=== PATIENT | female | born 1965 | race Caucasian/White ===

== ENCOUNTER 2020-09-27 16:17 | Inpatient (IN) | payer OTHER ==
[2020-09-27] MEDS ORDERED: Lactated Ringers 500 ML IV SCH (17:00)
[2020-09-27 19:04] LABS: INFLUENZA A NEGATIVE (NEGATIVE); INFLUENZA B NEGATIVE (NEGATIVE); RESPIRATORY SYNCTIAL VIRUS NEGATIVE (Negative)
[2020-09-27 20:20] LABS: ABO TYPING A; Antibody Screen NEGATIVE (NEGATIVE); RH TYPING POSITIVE
[2020-09-27 20:23] LABS: CROSS MATCH (PRBC) COMPATIBLE (COMPATIBLE)
[2020-09-27] MEDS: Sodium Chloride 0.9% 500 ML 500 ML IV SCH (20:36)
[2020-09-27] MEDS: TYLENOL 325 MG PO PRN (20:37)
[2020-09-27] MEDS ORDERED: DESYREL 50 MG PO PRN (21:21)
[2020-09-27] MEDS ORDERED: SYNTHROID 25 MCG PO ONE (22:00)
[2020-09-27] MEDS ORDERED: SYNTHROID 112 MCG PO ONE (22:00)
[2020-09-27] MEDS: COREG 12.5 MG PO SCH (22:17)
[2020-09-27] MEDS: CLARITIN 10 MG PO SCH (22:17)
[2020-09-28] MEDS: TYLENOL 325 MG PO PRN ×3 (01:59→18:38)
[2020-09-28 04:30] LABS: Appearance TURBID (CLEAR); Bacteria MANY /HPF (NEGATIVE); Bilirubin NEGATIVE (NEGATIVE); Blood LARGE Ery/ul (0-5); Epithelial Cells RARE /HPF (FEW); Glucose NEGATIVE (NEGATIVE); Ketones NEGATIVE (NEGATIVE); Leukocyte Esterase SMALL (NEGATIVE); Mucus SLIGHT /HPF (NEGATIVE); Nitrite NEGATIVE (NEGATIVE); Protein,Urine Dip >=500 (Negative); Specific Gravity 1.022 (1.005-1.025); Urobilinogen NEGATIVE mg/dL (0-1); WBC >100 /HPF (0-5)
[2020-09-28 04:31] LABS: RBC >101 /HPF (0-2)
[2020-09-28 05:31] LABS: Appearance SLIGHTLY CLOUDY (CLEAR); Bilirubin NEGATIVE (NEGATIVE); Blood MODERATE Ery/ul (0-5); Epithelial Cells RARE /HPF (FEW); Glucose NEGATIVE (NEGATIVE); Ketones NEGATIVE (NEGATIVE); Leukocyte Esterase TRACE (NEGATIVE); Nitrite NEGATIVE (NEGATIVE); Protein,Urine Dip NEGATIVE (Negative); Specific Gravity 1.017 (1.005-1.025); Urobilinogen NEGATIVE mg/dL (0-1)
[2020-09-28 05:50] LABS: Bacteria MODERATE /HPF (NEGATIVE)
[2020-09-28 06:58] LABS: Hematocrit 34.8 % (35-47); Hemoglobin 10.6 gm/dl (12.0-16.0); Mean Cell Volume 83.1 fl (78-100); Mean Corpuscular Hemoglobin 25.3 pg (26-32); Mean Corpuscular Hgb Concent. 30.5 g/dl (32-36); Mean Platelet Volume 9.2 fl (7.5-11.0); Platelet Count 351 K/mm3 (150-450); Red Blood Count 4.19 M/mm3 (4.1-5.4); Red Cell Distribution Width 18.3 % (11.5-14.0)
[2020-09-28 08:17] LABS: ALBUMIN 2.7 g/dL (3.5-5.0); ANION GAP 12.7 MEQ/L (5-15); BILIRUBIN,TOTAL 0.6 mg/dL (0.2-1.3); Calcium 9.4 mg/dL (8.4-10.2); Creatinine 1 1.93 mg/dL (0.52-1.04); EST GLOMERULAR FILTRATION RATE 28.8 ML/MIN; Potassium 5.6 mmol/L (3.5-5.1); Total Protein 5.7 g/dL (6.3-8.2)
--- NOTE | 2020-09-28 09:04 | PCM.HP ---
History of Present Illness - Chief Complaint Chief Complaint: anemia History of Present Illness: is a 55 year old female who was admitted with a critical hemoglobin of 5.6 she has had vaginal bleeding for the last couple of weeks and some difficulty with urination and hesitancy, states her appetite has been decreased but tolerating po ok, no specific complaints of pain. Her hygiene has been noted to be poor by nursing staff. - Review of Systems Constitutional: No Fever, No Chills Respiratory: No Cough, No Short Of Breath Cardiac: No Chest Pain, No Edema, No Syncope Genitourinary Symptoms: Hesitancy, Vaginal Bleeding, Vaginal Discharge Skin: No Rash All Other Systems: Reviewed and Negative Medications & Allergies Home Medications: Home Medication List Amlodipine Besylate 5 mg [Norvasc 5 mg] 2.5 mg PO DAILY 09/27/20 [History Confirmed 09/27/20] Atorvastatin Calcium [Lipitor 40Mg] 40 mg PO DAILY 09/27/20 [History Confirmed 09/27/20] Carvedilol 12.5 mg [Coreg 12.5 mg] 25 mg PO BID 09/27/20 [History Confirmed 09/27/20] Ferrous Sulfate [Ferosul] 325 mg PO BID PRN 09/27/20 [History Confirmed 09/27/20] Levothyroxine Sodium [Euthyrox] 137 mcg PO HS 09/27/20 [History Confirmed 09/27/20] Loratadine 10 mg [Claritin 10 mg] 10 mg PO HS 09/27/20 [History Confirmed 09/27/20] Trazodone HCl 100 mg PO HS PRN PRN 09/27/20 [History Confirmed 09/27/20] Allergies/Adverse Reactions: Allergies Allergy/AdvReac Type Severity Reaction Status Date / Time No Known Drug Allergies Allergy Unverified 09/27/20 18:48 - Past Medical History Past Medical History: Yes Neurological History: No Pertinent History ENT History: No Pertinent History Cardiac History: Hypertension Respiratory History: No Pertinent History Endocrine Medical History: Hypothyroidism Musculoskelatal History: No Pertinent History GI Medical History: No Pertinent History History: Renal Disease Pyscho-Social History: No Pertinent History Reproductive Disorders: No Pertinent History Comment: stage III CKD -- Sees Dr. Ortega - Female History Are you now?: No - Past Surgical History Past Surgical History: Yes Neuro Surgical History: No Pertinent History Cardiac History: No Pertinent History Respiratory Surgery: No Pertinent History GI Surgical History: Cholecystectomy Genitourinary Surgical Hx: No Pertinent History Musculskeletal Surgical Hx: No Pertinent History Female Surgical History: No Pertinent History - Social History Smoking Status: Never smoker Alcohol: None Drug Use: none - Physical Exam Vital Signs: Vital Signs - 24 hr Temp Pulse Resp BP Pulse Ox 09/28/20 07:25 97.4 F 60 18 127/58 97 09/28/20 04:00 97.9 F 67 24 139/63 96 09/28/20 00:00 98.2 F 66 20 124/59 97 09/27/20 19:34 98.3 F 91 H 18 164/67 98 09/27/20 18:50 98.3 F 91 H 18 164/67 98 General Appearance: no apparent distress, obese Neurologic Exam: alert, oriented x 3, cooperative Respiratory Exam: normal breath sounds, lungs clear, No respiratory distress Cardiovascular Exam: regular rate/rhythm Gastrointestinal/Abdomen Exam: soft, normal bowel sounds, No tenderness, No distention, No mass Extremity Exam: normal inspection, normal range of motion, pelvis stable Skin Exam: normal color, warm, dry, No rash Results - Labs Lab/Micro Results: Lab Results-Last 24 Hours 09/27/20 09/27/20 09/27/20 Range/Units 17:58 17:58 17:58 WBC (4.0-10.5) K/mm3 RBC (4.1-5.4) M/mm3 Hgb (12.0-16.0) gm/dl Hct (35-47) % MCV (78-100) fl MCH (26-32) pg MCHC (32-36) g/dl RDW (11.5-14.0) % Plt Count (150-450) K/mm3 MPV (7.5-11.0) fl Sodium (137-145) mmol/L Potassium (3.5-5.1) mmol/L Chloride (98-107) mmol/L Carbon Dioxide (22-30) mmol/L Anion Gap (5-15) MEQ/L BUN (7-17) mg/dL Creatinine (0.52-1.04) mg/dL Estimated GFR ML/MIN Glucose (74-106) mg/dL Calcium (8.4-10.2) mg/dL Total Bilirubin (0.2-1.3) mg/dL AST (14-36) U/L ALT (0-35) U/L Alkaline Phosphatase (38-126) U/L NT-Pro-B Natriuret Pep (0-900) pg/mL Serum Total Protein (6.3-8.2) g/dL Albumin (3.5-5.0) g/dL Urine Color (YELLOW) Urine Appearance (CLEAR) Urine pH (5-6) Ur Specific [place] (1.005-1.025) Urine Protein (Negative) Urine Ketones (NEGATIVE) Urine Blood (0-5) Kike/ul Urine Nitrite (NEGATIVE) Urine Bilirubin (NEGATIVE) Urine Urobilinogen (0-1) mg/dL Ur Leukocyte Esterase (NEGATIVE) Urine WBC (Auto) (0-5) /HPF Urine RBC (Auto) (0-2) /HPF U Epithel Cells (Auto) (FEW) /HPF Urine Bacteria (Auto) (NEGATIVE) /HPF Urine Mucus (Auto) (NEGATIVE) /HPF Urine Culture Reflexed (NO) Urine Glucose (NEGATIVE) mg/dL Stool Occult Blood (NEGATIVE) Influenza Type A Ag NEGATIVE (NEGATIVE) Influenza Type B Ag NEGATIVE (NEGATIVE) RSV (PCR) NEGATIVE (Negative) SARS-CoV-2 (PCR) NEGATIVE (NEGATIVE) ABO Group A Rh Factor POSITIVE Antibody Screen NEGATIVE (NEGATIVE) Crossmatch COMPATIBLE COMPATIBLE (COMPATIBLE) 09/27/20 09/28/20 09/28/20 Range/Units 17:58 01:30 04:00 WBC (4.0-10.5) K/mm3 RBC (4.1-5.4) M/mm3 Hgb (12.0-16.0) gm/dl Hct (35-47) % MCV (78-100) fl MCH (26-32) pg MCHC (32-36) g/dl RDW (11.5-14.0) % Plt Count (150-450) K/mm3 MPV (7.5-11.0) fl Sodium (137-145) mmol/L Potassium (3.5-5.1) mmol/L Chloride (98-107) mmol/L Carbon Dioxide (22-30) mmol/L Anion Gap (5-15) MEQ/L BUN (7-17) mg/dL Creatinine (0.52-1.04) mg/dL Estimated GFR ML/MIN Glucose (74-106) mg/dL Calcium (8.4-10.2) mg/dL Total Bilirubin (0.2-1.3) mg/dL AST (14-36) U/L ALT (0-35) U/L Alkaline Phosphatase (38-126) U/L NT-Pro-B Natriuret Pep (0-900) pg/mL Serum Total Protein (6.3-8.2) g/dL Albumin (3.5-5.0) g/dL Urine Color RED (YELLOW) Urine Appearance TURBID (CLEAR) Urine pH 6.0 (5-6) Ur Specific [place] 1.022 (1.005-1.025) Urine Protein >=500 (Negative) Urine Ketones NEGATIVE (NEGATIVE) Urine Blood LARGE (0-5) Kike/ul Urine Nitrite NEGATIVE (NEGATIVE) Urine Bilirubin NEGATIVE (NEGATIVE) Urine Urobilinogen NEGATIVE (0-1) mg/dL Ur Leukocyte Esterase SMALL (NEGATIVE) Urine WBC (Auto) >100 (0-5) /HPF Urine RBC (Auto) >101 (0-2) /HPF U Epithel Cells (Auto) RARE (FEW) /HPF Urine Bacteria (Auto) MANY (NEGATIVE) /HPF Urine Mucus (Auto) SLIGHT (NEGATIVE) /HPF Urine Culture Reflexed YES (NO) Urine Glucose NEGATIVE (NEGATIVE) mg/dL Stool Occult Blood POSITIVE A (NEGATIVE) Influenza Type A Ag (NEGATIVE) Influenza Type B Ag (NEGATIVE) RSV (PCR) (Negative) SARS-CoV-2 (PCR) (NEGATIVE) ABO Group Rh Factor Antibody Screen (NEGATIVE) Crossmatch COMPATIBLE (COMPATIBLE) 09/28/20 09/28/20 09/28/20 Range/Units 05:10 06:32 06:32 WBC 13.0 H (4.0-10.5) K/mm3 RBC 4.19 (4.1-5.4) M/mm3 Hgb 10.6 L D (12.0-16.0) gm/dl Hct 34.8 L (35-47) % MCV 83.1 (78-100) fl MCH 25.3 L (26-32) pg MCHC 30.5 L (32-36) g/dl RDW 18.3 H (11.5-14.0) % Plt Count 351 (150-450) K/mm3 MPV 9.2 (7.5-11.0) fl Sodium 132 L (137-145) mmol/L Potassium 5.6 H (3.5-5.1) mmol/L Chloride 108 H (98-107) mmol/L Carbon Dioxide 17 L (22-30) mmol/L Anion Gap 12.7 (5-15) MEQ/L BUN 40 H (7-17) mg/dL Creatinine 1.93 H (0.52-1.04) mg/dL Estimated GFR 28.8 ML/MIN Glucose 102 (74-106) mg/dL Calcium 9.4 (8.4-10.2) mg/dL Total Bilirubin 0.60 (0.2-1.3) mg/dL AST 34 (14-36) U/L ALT 32 (0-35) U/L Alkaline Phosphatase 140 H (38-126) U/L NT-Pro-B Natriuret Pep (0-900) pg/mL Serum Total Protein 5.7 L (6.3-8.2) g/dL Albumin 2.7 L (3.5-5.0) g/dL Urine Color YELLOW (YELLOW) Urine Appearance SLIGHTLY CLOUDY (CLEAR) Urine pH 5.0 (5-6) Ur Specific [place] 1.017 (1.005-1.025) Urine Protein NEGATIVE (Negative) Urine Ketones NEGATIVE (NEGATIVE) Urine Blood MODERATE (0-5) Kike/ul Urine Nitrite NEGATIVE (NEGATIVE) Urine Bilirubin NEGATIVE (NEGATIVE) Urine Urobilinogen NEGATIVE (0-1) mg/dL Ur Leukocyte Esterase TRACE (NEGATIVE) Urine WBC (Auto) 3-5 (0-5) /HPF Urine RBC (Auto) 6-10 (0-2) /HPF U Epithel Cells (Auto) RARE (FEW) /HPF Urine Bacteria (Auto) MODERATE (NEGATIVE) /HPF Urine Mucus (Auto) (NEGATIVE) /HPF Urine Culture Reflexed ORDERED SEPARATELY (NO) Urine Glucose NEGATIVE (NEGATIVE) mg/dL Stool Occult Blood (NEGATIVE) Influenza Type A Ag (NEGATIVE) Influenza Type B Ag (NEGATIVE) RSV (PCR) (Negative) SARS-CoV-2 (PCR) (NEGATIVE) ABO Group Rh Factor Antibody Screen (NEGATIVE) Crossmatch (COMPATIBLE) 09/28/20 Range/Units 06:32 WBC (4.0-10.5) K/mm3 RBC (4.1-5.4) M/mm3 Hgb (12.0-16.0) gm/dl Hct (35-47) % MCV (78-100) fl MCH (26-32) pg MCHC (32-36) g/dl RDW (11.5-14.0) % Plt Count (150-450) K/mm3 MPV (7.5-11.0) fl Sodium (137-145) mmol/L Potassium (3.5-5.1) mmol/L Chloride (98-107) mmol/L Carbon Dioxide (22-30) mmol/L Anion Gap (5-15) MEQ/L BUN (7-17) mg/dL Creatinine (0.52-1.04) mg/dL Estimated GFR ML/MIN Glucose (74-106) mg/dL Calcium (8.4-10.2) mg/dL Total Bilirubin (0.2-1.3) mg/dL AST (14-36) U/L ALT (0-35) U/L Alkaline Phosphatase (38-126) U/L NT-Pro-B Natriuret Pep 1100 H (0-900) pg/mL Serum Total Protein (6.3-8.2) g/dL Albumin (3.5-5.0) g/dL Urine Color (YELLOW) Urine Appearance (CLEAR) Urine pH (5-6) Ur Specific [place] (1.005-1.025) Urine Protein (Negative) Urine Ketones (NEGATIVE) Urine Blood (0-5) Kike/ul Urine Nitrite (NEGATIVE) Urine Bilirubin (NEGATIVE) Urine Urobilinogen (0-1) mg/dL Ur Leukocyte Esterase (NEGATIVE) Urine WBC (Auto) (0-5) /HPF Urine RBC (Auto) (0-2) /HPF U Epithel Cells (Auto) (FEW) /HPF Urine Bacteria (Auto) (NEGATIVE) /HPF Urine Mucus (Auto) (NEGATIVE) /HPF Urine Culture Reflexed (NO) Urine Glucose (NEGATIVE) mg/dL Stool Occult Blood (NEGATIVE) Influenza Type A Ag (NEGATIVE) Influenza Type B Ag (NEGATIVE) RSV (PCR) (Negative) SARS-CoV-2 (PCR) (NEGATIVE) ABO Group Rh Factor Antibody Screen (NEGATIVE) Crossmatch (COMPATIBLE) - Radiology Impressions Radiology Exams & Impressions: Radiology Procedures Category Date Time Status KIDNEY [US] Routine Exams 09/28/20 Ordered PELVIS LIMITED [US] Routine Exams 09/28/20 Ordered Assessment/Plan (1) Anemia Current Visit: Yes Status: Acute Assessment & Plan: likely from multiple bleeding sources, plan kidney and pelvic ultrasound today. will eventually likely required endoscopic evaluation, currently on no anticoagulants. will start ppi Code(s): D64.9 - ANEMIA, UNSPECIFIED (2) Vaginal bleeding Current Visit: Yes Status: Acute Code(s): N93.9 - ABNORMAL UTERINE AND VAGINAL BLEEDING, UNSPECIFIED (3) Heme positive stool Current Visit: Yes Status: Acute (4) Hematuria Current Visit: Yes Status: Acute Code(s): R31.9 - HEMATURIA, UNSPECIFIED
[2020-09-28] MEDS: ZOCOR 20MG PO SCH (11:41)
[2020-09-28] MEDS: NORVASC 5 MG PO SCH (11:41)
[2020-09-28] MEDS: SYNTHROID 25 MCG PO SCH (11:42)
[2020-09-28] MEDS: SYNTHROID 112 MCG PO SCH (11:42)
[2020-09-28] MEDS: PROTONIX 40 MG IV IV SCH (11:42)
[2020-09-28] MEDS: COREG 12.5 MG PO SCH ×2 (11:42→22:58)
[2020-09-28 12:14] LABS: ATYPICAL LYMPHS 1 %; BAND 4 % (0.0-2.0); Eosinophil 5 % (0.00-3.0); Lymphocytes 86 % (24-44); Monocyte 4 % (0.0-12.0); Total Cells Counted 100
[2020-09-28 12:15] LABS: ANISOCYTOSIS 1+; Platelet Estimate NORMAL (NORMAL); Toxic Granulation 1+
--- NOTE | 2020-09-28 13:41 | XRAY ---
Exam: Pelvic ultrasound exam from 09/28/2020. Comparison: CT of the abdomen and pelvis without IV contrast from 08/07/2020. Indication: Vaginal bleeding and pain; pelvic mass identified on prior CT study. Technique: Transabdominal longitudinal and transverse images of the pelvis were obtained. Findings: The urinary bladder reveals only a small amount of urine within it and appears displaced anteriorly by a large heterogeneous lower pelvic midline soft tissue mass. This mass contains some eccentric increased echoes within it. I believe the mass measures about 14.1 cm in length (manually remeasured), 9.6 cm in AP depth, and 10.3 cm in width. Some surrounding bowel gas artifact is seen. It is difficult to determine the origin of this mass, but I favor that it is either uterine or cervical. I do not see any definite free fluid within the lower pelvis. Neither ovary was able to be identified on the ultrasound. However, no large pelvic adnexal mass was seen on the prior CT study from 08/07/2020. Impression: 1. I again see a large round/oval-shaped heterogeneous soft tissue mass within lower pelvic midline which appears to be displacing a small volume urinary bladder anteriorly. This mass measures about 14.1 cm x 9.6 cm x 10.3 cm. This probably relates to either the uterus or the cervix. Gynecology consult may be helpful.
--- NOTE | 2020-09-28 13:59 | XRAY ---
Exam: Bilateral renal ultrasound from 09/28/2020. Comparison: CT of the abdomen and pelvis without IV contrast from 08/07/2020 and bilateral renal ultrasound from 02/14/2020. Indication: Difficulty urinating, hematuria. Findings: The right kidney measures 10.0 cm x 4.5 cm x 5.4 cm. There is some separation of the central echogenic complex medially on the longitudinal images. This is similar to the CT study from 08/07/2020. I'm not sure whether this due to a moderate sized extrarenal pelvis or mild hydronephrosis of the right kidney. In any event, I do not believe this is significantly changed from 08/07/2020.. The left kidney measures 11.3 cm x 5.7 cm x 4.8 cm. There again appears to be some separation of the central echogenic complex at the medial aspect of the left kidney. However, this was not seen on the CT study from 08/07/2020. Therefore, I believe this is likely due to mild to moderate hydronephrosis. The urinary bladder is relatively small with a urinary bladder volume of 60.6 ML's. The urinary bladder appears displaced anteriorly by the large lower pelvic midline soft tissue mass. Evidently, a urinary Blas catheter is in place. No other significant finding is seen. Impression: 1. There is either a moderate sized extrarenal pelvis at the medial aspect of the right kidney or mild hydronephrosis on the right. I believe this is similar to the CT study from 08/07/2020. 2. Within the left kidney, I note new mild separation of the central echogenic complex as compared to the CT study from 08/07/2020. This suggests mild to moderate left-sided hydronephrosis. 3. Both kidneys appear within normal limits of size. 4. Evidently, the patient has a Blas catheter within the urinary bladder. The urinary bladder volume is relatively low. The urinary bladder appears displaced anteriorly by the large midline pelvic soft tissue mass.
[2020-09-28] MEDS ORDERED: Ambien 5 MG Tablet PO PRN (20:10)
[2020-09-28] MEDS ORDERED: LEVOTHYROXINE SODIUM 137 MCG PO SCH (22:00)
[2020-09-28] MEDS: CLARITIN 10 MG PO SCH (22:54)
[2020-09-29] MEDS: TYLENOL 325 MG PO PRN (02:30)
[2020-09-29] MEDS ORDERED: FLAGYL 500 MG IVPB 500 MG/100 ML BAG IV ONE (04:21)
[2020-09-29] MEDS ORDERED: Sodium Chloride 0.9% 1000 ML 1,000 ML ONE (04:22)
[2020-09-29 04:51] LABS: Absolute Neutrophil Ct (ANC) 10.56 (1.4-6.9); BASOPHIL % 0.2 % (0.0-0.4); Basophil (Absolute #) 0.02 (0-0.4); Eosinophil (Absolute #) 0.26 (0-0.5); Hematocrit 31.3 % (35-47); Hemoglobin 9.4 gm/dl (12.0-16.0); Lymphocyte (Absolute #) 1.01 (1.0-4.6); Lymphocytes % 7.6 % (24.0-44.0); Mean Cell Volume 83.5 fl (78-100); Mean Corpuscular Hemoglobin 25.1 pg (26-32); Mean Platelet Volume 9.4 fl (7.5-11.0); Monocyte (Absolute #) 1.43 (0.0-1.3); Monocytes % 10.8 % (0.0-12.0); Neutrophil % 79.4 % (36.0-66.0); Platelet Count 316 K/mm3 (150-450); Red Blood Count 3.75 M/mm3 (4.1-5.4); Red Cell Distribution Width 18.5 % (11.5-14.0); White Blood Count 13.3 K/mm3 (4.0-10.5)
[2020-09-29 05:23] LABS: ALBUMIN 2.4 g/dL (3.5-5.0); ANION GAP 12.7 MEQ/L (5-15); BILIRUBIN,TOTAL 0.3 mg/dL (0.2-1.3); Creatinine 1 2.03 mg/dL (0.52-1.04); EST GLOMERULAR FILTRATION RATE 27.1 ML/MIN; Potassium 5.3 mmol/L (3.5-5.1); Total Protein 5.2 g/dL (6.3-8.2)
--- NOTE | 2020-09-29 08:40 | PCM.NOTE ---
Date and Time: 09/29/20833 Subjective Assessment: Pt felt much better yesterday morning, then her tiredness returned later in the day. On u/s, pt has a large (approx [id number] cm) pelvic mass, likely uterine or cervical. I discussed this with the pt, including the fact that cancer is in the differential but cannot say for sure until biopsy is done. Surgery is being consulted, thank you. Pt is tolerating po but says her appetite is decreased with some early satiety (this morning, has eaten 75% of her biscuits and gravy). Continues to have vaginal bleeding intermittently. - Review of Systems Constitutional: No Fever Genitourinary Symptoms: Vaginal Bleeding Objective Exam General Appearance: no apparent distress, alert, obese Neurologic Exam: oriented x 3, cooperative Skin Exam: normal color, warm, dry, No rash Ears, Nose, Throat Exam: moist mucous membranes Respiratory Exam: diminished breath sounds, No crackles/rales, No rhonchi, No wheezing Cardiovascular Exam: regular rate/rhythm, normal heart sounds, No murmur Gastrointestinal/Abdomen Exam: soft, No normal bowel sounds (hypoactive but present), No tenderness, No guarding, No rebound Extremity Exam: No pedal edema, No swelling Back Exam: normal inspection, No rash OBJECTIVE DATA Vital Signs: Vital Signs - 24 hr Temp Pulse Resp BP Pulse Ox 09/29/20 07:38 98.5 F 68 14 130/58 95 09/29/20 04:10 98.3 F 68 18 120/57 96 09/28/20 23:53 97.9 F 66 20 127/60 97 09/28/20 20:07 97.5 F 63 17 152/65 97 09/28/20 16:00 98.1 F 62 18 156/65 95 09/28/20 12:00 98.1 F 67 18 163/69 94 L Pain Assessment - Last Documented Pain Intensity 2 Pain Scale Used [facility] Intake and Output: Intake & Output 09/26/20 09/27/20 09/28/20 09/29/20 11:59 11:59 11:59 11:59 Intake Total 1584 800 Output Total 10 700 Balance 1574 100 Weight 105.6 kg Lab Results: Lab Results-Last 24 Hours 09/28/20 09/29/20 09/29/20 Range/Units 06:32 04:30 04:30 WBC 13.3 H (4.0-10.5) K/mm3 RBC 3.75 L (4.1-5.4) M/mm3 Hgb 9.4 L (12.0-16.0) gm/dl Hct 31.3 L (35-47) % MCV 83.5 (78-100) fl MCH 25.1 L (26-32) pg MCHC 30.0 L (32-36) g/dl RDW 18.5 H (11.5-14.0) % Plt Count 316 (150-450) K/mm3 MPV 9.4 (7.5-11.0) fl Gran % 79.4 H (36.0-66.0) % Eos # (Auto) 0.26 (0-0.5) Absolute Lymphs (auto) 1.01 (1.0-4.6) Absolute Monos (auto) 1.43 H (0.0-1.3) Lymphocytes % 7.6 L (24.0-44.0) % Monocytes % 10.8 (0.0-12.0) % Eosinophils % 2.0 (0.00-5.0) % Basophils % 0.2 (0.0-0.4) % Absolute Granulocytes 10.56 H (1.4-6.9) Band Neutrophils 4 H (0.0-2.0) % Lymphocytes (Manual) 86 H (24-44) % Monocytes (Manual) 4 (0.0-12.0) % Eosinophils (Manual) 5 H (0.00-3.0) % Basophils # 0.02 (0-0.4) Atypical Lymphocytes 1 % Toxic Granulation 1+ Platelet Estimate NORMAL (NORMAL) RBC Morphology ABNORMAL Anisocytosis 1+ Sodium 129 L (137-145) mmol/L Potassium 5.3 H (3.5-5.1) mmol/L Chloride 107 (98-107) mmol/L Carbon Dioxide 14 L* (22-30) mmol/L Anion Gap 12.7 (5-15) MEQ/L BUN 47 H (7-17) mg/dL Creatinine 2.03 H (0.52-1.04) mg/dL Estimated GFR 27.1 ML/MIN Glucose 114 H (74-106) mg/dL Calcium 9.0 (8.4-10.2) mg/dL Total Bilirubin 0.30 (0.2-1.3) mg/dL AST 26 (14-36) U/L ALT 27 (0-35) U/L Alkaline Phosphatase 119 (38-126) U/L Serum Total Protein 5.2 L (6.3-8.2) g/dL Albumin 2.4 L (3.5-5.0) g/dL Radiology Exams: Radiology Procedures Category Date Time Status KIDNEY [US] Routine Exams 09/28/20 12:43 Completed PELVIC [US] Routine Exams 09/28/20 12:43 Completed Assessment/Plan (1) Pelvic mass Current Visit: Yes Status: Acute Assessment & Plan: Concern for malignancy, certainly. Surgery consulted; pt is now NPO. Code(s): R19.00 - INTRA-ABD AND PELVIC SWELLING, MASS AND LUMP, UNSP SITE (2) hemoccult positive Current Visit: Yes Status: Acute (3) Poor intravenous access Current Visit: Yes Status: Acute Assessment & Plan: With doubtless upcoming surgery and possible treatment, along with possible need for further blood transfusion, pt would benefit from port placement. I did not discuss this with the pt. Code(s): Z78.9 - OTHER SPECIFIED HEALTH STATUS (4) Anemia Current Visit: Yes Status: Acute Qualifiers: Anemia type: iron deficiency Iron deficiency anemia type: other iron deficiency Qualified Code(s): D50.8 - Other iron deficiency anemias Code(s): D64.9 - ANEMIA, UNSPECIFIED (5) Vaginal bleeding Current Visit: Yes Status: Acute Code(s): N93.9 - ABNORMAL UTERINE AND VAGINAL BLEEDING, UNSPECIFIED (6) DVT prophylaxis Current Visit: Yes Status: Acute Assessment & Plan: With pt's bleeding and transfusion, and likely upcoming surgery, no blood thinners at this time. SCDs. Code(s): Z29.9 - ENCOUNTER FOR PROPHYLACTIC MEASURES, UNSPECIFIED (7) Fluid/electrolyte/nutrition Current Visit: Yes Status: Acute Assessment & Plan: With continued low CO2 on BMP, will restart NS at 75mL/hr.
[2020-09-29] MEDS: Sodium Chloride 0.9% 1000 ML 1,000 ML IV SCH ×2 (09:24→21:22)
[2020-09-29] MEDS: ZOCOR 20MG PO SCH (09:25)
[2020-09-29] MEDS: PROTONIX 40 MG IV IV SCH (09:25)
[2020-09-29] MEDS: COREG 12.5 MG PO SCH ×2 (09:25→21:21)
[2020-09-29] MEDS: SYNTHROID 25 MCG PO SCH (09:26)
[2020-09-29] MEDS: NORVASC 5 MG PO SCH (09:26)
[2020-09-29] MEDS: SYNTHROID 112 MCG PO SCH (09:26)
[2020-09-29] MEDS ORDERED: XYLOCAINE 1% HCL 20 ML MDV ONE (17:41)
[2020-09-29] MEDS ORDERED: Versed 2 MG/2 ML Injection ONE (18:11)
[2020-09-29] MEDS ORDERED: SUBLIMAZE 100 MCG/2 ML ONE (18:11)
[2020-09-29] MEDS ORDERED: DIPRIVAN 200 MG/20 ML IV ONE ×2 (18:11→18:53)
[2020-09-29] MEDS ORDERED: PHENYLEPHRINE HCL ONE (18:38)
[2020-09-29] MEDS ORDERED: KEFZOL 1 GM ONE (18:41)
[2020-09-29] MEDS ORDERED: CITROMA 296 ML PO ONE (20:33)
[2020-09-29] MEDS ORDERED: Miralax Powder 17GM PACKET PO ONE (20:36)
[2020-09-29] MEDS ORDERED: DULCOLAX 5 MG PO ONE (20:36)
[2020-09-29] MEDS ORDERED: NORCO 5/325 MG PO PRN (20:42)
[2020-09-29] MEDS: CLARITIN 10 MG PO SCH (21:22)
--- NOTE | 2020-09-30 07:06 | XRAY ---
Indication: Port placement. Poor venous access. Intraoperative fluoroscopy provided for 3 seconds. 2 digital spot images submitted for interpretation demonstrates partially visualized left Port-A-Cath with tip projecting over the SVC. Correlate with intraoperative findings/report.
[2020-09-30] MEDS ORDERED: Sodium Chloride 0.9% 10 ML FLUSH Syringe IV PRN (08:00)
[2020-09-30 08:48] LABS: Hemoglobin 9.1 gm/dl (12.0-16.0); Mean Cell Volume 84.7 fl (78-100); Mean Corpuscular Hemoglobin 24.9 pg (26-32); Mean Corpuscular Hgb Concent. 29.4 g/dl (32-36); Mean Platelet Volume 9.1 fl (7.5-11.0); Platelet Count 274 K/mm3 (150-450); Red Blood Count 3.66 M/mm3 (4.1-5.4); Red Cell Distribution Width 19.1 % (11.5-14.0); White Blood Count 13.9 K/mm3 (4.0-10.5)
[2020-09-30] MEDS: Sodium Chloride 0.9% 1000 ML 1,000 ML IV SCH (08:50)
[2020-09-30] MEDS: Sodium Chloride 0.9% 500 ML 500 ML IV SCH (08:52)
[2020-09-30 09:08] LABS: ALBUMIN 2.5 g/dL (3.5-5.0); ANION GAP 13.1 MEQ/L (5-15); BILIRUBIN,TOTAL 0.2 mg/dL (0.2-1.3); Calcium 8.8 mg/dL (8.4-10.2); Creatinine 1 1.94 mg/dL (0.52-1.04); EST GLOMERULAR FILTRATION RATE 28.6 ML/MIN; Potassium 4.8 mmol/L (3.5-5.1); Total Protein 5.4 g/dL (6.3-8.2)
[2020-09-30] MEDS: SYNTHROID 112 MCG PO SCH (09:43)
[2020-09-30] MEDS: SYNTHROID 25 MCG PO SCH (09:43)
[2020-09-30] MEDS: ZOCOR 20MG PO SCH (09:43)
[2020-09-30] MEDS: NORVASC 5 MG PO SCH (09:43)
[2020-09-30] MEDS: COREG 12.5 MG PO SCH (09:43)
[2020-09-30] MEDS: PROTONIX 40 MG IV IV SCH (09:44)
--- NOTE | 2020-09-30 09:59 | PCM.NOTE ---
Date and Time: 09/30/20 0956 Subjective Assessment: no new complaints today, patient is tired and didn't get much sleep. plan for egd/colonoscopy today with surgery Objective Exam General Appearance: no apparent distress, obese Neurologic Exam: alert, oriented x 3 Respiratory Exam: normal breath sounds, lungs clear, No respiratory distress Cardiovascular Exam: regular rate/rhythm, normal heart sounds Gastrointestinal/Abdomen Exam: soft, No tenderness, No mass OBJECTIVE DATA Vital Signs: Vital Signs - 24 hr Temp Pulse Resp BP Pulse Ox 09/30/20 07:05 98.0 F 70 20 125/58 97 09/30/20 04:00 68 17 105/52 99 09/29/20 22:15 97.6 F 72 19 126/60 94 L 09/29/20 21:15 98.0 F 72 20 148/65 96 09/29/20 20:45 98.8 F 72 16 137/61 96 09/29/20 20:15 98.5 F 70 20 136/61 94 L 09/29/20 20:00 98.2 F 70 22 146/66 95 09/29/20 16:09 97.5 F 68 18 119/58 95 09/29/20 16:00 99.4 F 67 18 136/61 96 09/29/20 11:42 97.5 F 68 18 119/58 95 Pain Assessment - Last Documented Pain Intensity 0 Pain Scale Used [facility] Intake and Output: Intake & Output 09/27/20 09/28/20 09/29/20 09/30/20 11:59 11:59 11:59 11:59 Intake Total 1584 1040 3542 Output Total 10 700 250 Balance 5448 277 2884 Weight 105.6 kg 105.6 kg Lab Results: Lab Results-Last 24 Hours 09/30/20 09/30/20 Range/Units 08:15 08:15 WBC 13.9 H (4.0-10.5) K/mm3 RBC 3.66 L (4.1-5.4) M/mm3 Hgb 9.1 L (12.0-16.0) gm/dl Hct 31.0 L (35-47) % MCV 84.7 (78-100) fl MCH 24.9 L (26-32) pg MCHC 29.4 L (32-36) g/dl RDW 19.1 H (11.5-14.0) % Plt Count 274 (150-450) K/mm3 MPV 9.1 (7.5-11.0) fl Sodium 129 L (137-145) mmol/L Potassium 4.8 (3.5-5.1) mmol/L Chloride 106 (98-107) mmol/L Carbon Dioxide 14 L* (22-30) mmol/L Anion Gap 13.1 (5-15) MEQ/L BUN 47 H (7-17) mg/dL Creatinine 1.94 H (0.52-1.04) mg/dL Estimated GFR 28.6 ML/MIN Glucose 86 (74-106) mg/dL Calcium 8.8 (8.4-10.2) mg/dL Total Bilirubin 0.20 (0.2-1.3) mg/dL AST 49 H (14-36) U/L ALT 31 (0-35) U/L Alkaline Phosphatase 141 H (38-126) U/L Serum Total Protein 5.4 L (6.3-8.2) g/dL Albumin 2.5 L (3.5-5.0) g/dL Radiology Exams: Radiology Procedures Category Date Time Status FLUOROSCOPY FOR VENOUS ACCESS Routine Exams 09/29/20 19:05 Completed KIDNEY [US] Routine Exams 09/28/20 12:43 Completed PELVIC [US] Routine Exams 09/28/20 12:43 Completed Assessment/Plan (1) Pelvic mass Current Visit: Yes Status: Acute Assessment & Plan: origin of mass is uncertain on ct from 08/07 and ultrasound, surgery to perform egd/colonoscopy today then will formulate surgical plan. appreciate their input and help Code(s): R19.00 - INTRA-ABD AND PELVIC SWELLING, MASS AND LUMP, UNSP SITE (2) Heme positive stool Current Visit: Yes Status: Acute (3) Anemia Current Visit: Yes Status: Acute Qualifiers: Anemia type: iron deficiency Iron deficiency anemia type: other iron de ficiency Qualified Code(s): D50.8 - Other iron deficiency anemias Assessment & Plan: h/h stable Code(s): D64.9 - ANEMIA, UNSPECIFIED (4) Vaginal bleeding Current Visit: Yes Status: Acute Code(s): N93.9 - ABNORMAL UTERINE AND VAGINAL BLEEDING, UNSPECIFIED (5) [id number] kidney injury Current Visit: Yes Status: Acute Assessment & Plan: slight improvement, left kidney with some hydro changes, likely obstruction from mass Code(s): N17.9 - ACUTE KIDNEY FAILURE, UNSPECIFIED; N18.9 - CHRONIC KIDNEY DISEASE, UNSPECIFIED
[2020-09-30] MEDS ORDERED: Lactated Ringers 1,000 ML IV SCH (10:30)
[2020-09-30] MEDS ORDERED: Sodium Chloride 0.9% 1000 ML 1,000 ML ONE (10:31)
[2020-09-30] MEDS ORDERED: DIPRIVAN 200 MG/20 ML IV ONE (10:32)
--- NOTE | 2020-09-30 11:38 | PCM.DS ---
Discharge Summary Date of Admission: 09/28/20 16:19 Admitting Physician: SAMANTHA ZHANG Consults: Consults on Case 09/29/20 08:00 Consult Surgery ROUTINE Primary Care Provider: SAMANTHA ZHANG Allergies Allergies No Known Drug Allergies Allergy (Unverified 09/27/20 18:48) Hospital Summary - Hospital Course Hospital Course: patient was admitted with hemoglobin of 5.6, found to have hematuria, heme + stool and vaginal bleeding, ultrasound showed large pelvic mass of unknown etiology. had a port - Vitals & Intake/Output Vital Signs: Vital Signs Temperature 98.2 F 09/30/20 09:58 Pulse Rate 78 09/30/20 09:58 Respiratory Rate 20 09/30/20 09:58 Blood Pressure 125/58 09/30/20 09:58 O2 Sat by Pulse Oximetry 97 09/30/20 09:58 Intake & Output: Intake & Output 09/27/20 09/28/20 09/29/20 09/30/20 11:59 11:59 11:59 11:59 Intake Total 1584 1040 3542 Output Total 10 700 250 Balance 4658 405 8479 Weight 105.6 kg 105.6 kg - Lab Result Diagrams: 09/30/20 08:15 09/30/20 08:15 Lab Results-Last 24 Hrs: Lab Results-Last 24 Hours 09/30/20 09/30/20 Range/Units 08:15 08:15 WBC 13.9 H (4.0-10.5) K/mm3 RBC 3.66 L (4.1-5.4) M/mm3 Hgb 9.1 L (12.0-16.0) gm/dl Hct 31.0 L (35-47) % MCV 84.7 (78-100) fl MCH 24.9 L (26-32) pg MCHC 29.4 L (32-36) g/dl RDW 19.1 H (11.5-14.0) % Plt Count 274 (150-450) K/mm3 MPV 9.1 (7.5-11.0) fl Sodium 129 L (137-145) mmol/L Potassium 4.8 (3.5-5.1) mmol/L Chloride 106 (98-107) mmol/L Carbon Dioxide 14 L* (22-30) mmol/L Anion Gap 13.1 (5-15) MEQ/L BUN 47 H (7-17) mg/dL Creatinine 1.94 H (0.52-1.04) mg/dL Estimated GFR 28.6 ML/MIN Glucose 86 (74-106) mg/dL Calcium 8.8 (8.4-10.2) mg/dL Total Bilirubin 0.20 (0.2-1.3) mg/dL AST 49 H (14-36) U/L ALT 31 (0-35) U/L Alkaline Phosphatase 141 H (38-126) U/L Serum Total Protein 5.4 L (6.3-8.2) g/dL Albumin 2.5 L (3.5-5.0) g/dL Micro Results-Entire Visit: Microbiology 09/28/20 05:10 Urine Culture - Preliminary Catherized NO GROWTH TO DATE 09/28/20 04:00 Urine Culture - Preliminary Urine, Void <10K NORMAL SKIN JAYY PROBABLE SKIN CONTAMINANT - Radiology Exams Ordered Rad Exams-Entire Visit: Radiology Procedures Category Date Time Status FLUOROSCOPY FOR VENOUS ACCESS Routine Exams 09/29/20 19:05 Completed KIDNEY [US] Routine Exams 09/28/20 12:43 Completed PELVIC [US] Routine Exams 09/28/20 12:43 Completed Discharge Exam General Appearance: no apparent distress, alert, obese Respiratory Exam: normal breath sounds, lungs clear, No respiratory distress Cardiovascular Exam: regular rate/rhythm, normal heart sounds Gastrointestinal/Abdomen Exam: soft, No tenderness, No mass Final Diagnosis/Problem List - Final Discharge Diagnosis/Problem (1) Pelvic mass Current Visit: Yes Status: Acute Assessment & Plan: spoke with Dr Rouse hospitalist at [facility] and he agrees to accept the patient in transfer on recommendation of Dr Sanchez with no colon involvement, patient will need urology and production mechanic consult Code(s): R19.00 - INTRA-ABD AND PELVIC SWELLING, MASS AND LUMP, UNSP SITE (2) Heme positive stool Current Visit: Yes Status: Acute (3) Anemia Current Visit: Yes Status: Acute Code(s): D64.9 - ANEMIA, UNSPECIFIED (4) Vaginal bleeding Current Visit: Yes Status: Acute Code(s): N93.9 - ABNORMAL UTERINE AND VAGINAL BLEEDING, UNSPECIFIED (5) Vxejy-kr-wjnoeov kidney injury Current Visit: Yes Status: Acute Code(s): N17.9 - ACUTE KIDNEY FAILURE, UNSPECIFIED; N18.9 - CHRONIC KIDNEY DISEASE, UNSPECIFIED - Discharge Disposition: DC TO [facility] Condition: Stable Prescriptions: No Action Amlodipine Besylate 5 mg [Norvasc 5 mg] 2.5 mg PO DAILY Carvedilol 12.5 mg [Coreg 12.5 mg] 25 mg PO BID Loratadine 10 mg [Claritin 10 mg] 10 mg PO HS Trazodone HCl 100 mg PO HS PRN PRN PRN Reason: Insomnia Levothyroxine Sodium [Euthyrox] 137 mcg PO HS Ferrous Sulfate [Ferosul] 325 mg PO BID PRN Atorvastatin Calcium [Lipitor 40Mg] 40 mg PO DAILY Additional Instructions: Dr Burns accepting patient in transfer Follow up with: SAMANTHA ZHANG [Primary Care Provider] -
[2020-09-30 11:41] VITALS: BP 124/59; PULSE 72; O2SAT 96
[2020-09-30] MEDS: TYLENOL 325 MG PO PRN (11:45)
--- NOTE | 2020-10-02 09:58 | CONS ---
CONSULT DATE: 09/29/2020 HISTORY: The patient is a 55 year-old female who apparently had a large pelvic mass a month and a half or so. Vague on what type of work up that she has had. They did ultrasound and question whether it was bigger today. She had a hemoglobin that was reported in the 5 range at some point. She said she followed up with the managed services sales consultant. She had some treatment for some kidney problems back then but she has not had an endoscopy in the past. She has not seen a hedis coordinator. She has had vaginal bleeding since March, she said. PAST MEDICAL HISTORY: Hypertension, hypothyroidism, hyperlipidemia, some allergies. Denies any known liver problems. PAST SURGICAL HISTORY: She said she has not had any endoscopy in the past. She denies any gynecologic procedures in the past. Cholecystectomy in the past. MEDICATIONS: Acetaminophen, amlodipine, Carvedilol, levothyroxine, loratadine, pantoprazole, Simvastatin, trazodone, Zolpidem. ALLERGIES: NKDA. FAMILY HISTORY: Negative in regards to this problem. SOCIAL HISTORY: No alcohol abuse. REVIEW OF SYSTEMS: Fourteen systems reviewed. She has poor venous access. She has obesity. She is not sure if she had any rectal problems. Other systems negative or noncontributory as above and per preadmission questionnaire. LAB DATA AND TESTS: Creatinine 2, potassium 5.3. Liver function tests were okay. Hemoglobin 9.4, white count 13.3, PLT 316,000. PHYSICAL EXAMINATION: GENERAL: Chronically ill female. HEENT: Sclera nonicteric. NECK: No JVD. CHEST: Equal excursion, nonlabored breathing. CVS: Regular rate and rhythm. ABDOMEN: Obese. She has a fullness in her pelvis area consistent with known pelvic area mass. EXTREMITIES: She had a peripheral IV placed by anesthesia in her right arm. No cyanosis. NEURO: Alert, moving extremities grossly symmetrically. PSYCH: Appropriate mood and affect. IMPRESSION: Some sort of pelvic mass. She has not had a prior colonoscopy. They questioned a month and a half ago whether this is uterine or involving the bladder. She has not seen a urologist, she said. She definitely needs further work up. I recommend EGD and colonoscopy as she had hemoglobin in the 5 range at some point although today's labs with hemoglobin 9.4. Make sure there is no mass arising from the colon and make sure she does not have ulcer disease or other etiology for having anemia. General risk of bleeding, infection, thrombosis, risk of bowel prep, risk of bowel perforation or injury possibly requiring open procedure, risk of ongoing morbidity, risk of missed or nondiagnosis or incomplete exam possibly requiring other studies. She also likely needs to be evaluated by an urologist to determine if there is any bladder involvement and to determine whether she is a candidate for any surgical intervention here locally. She and the family agree to the plan. I will review her CT scan to see if it looks like she is a candidate for endoscopy while she is here. Otherwise, she definitely needs to be seen by an urologist given the report of CT scan in the past. Additionally, she needs a Port-A-Cath and they asked me to place this tonight. General risk of bleeding, infection, thrombosis or pneumothorax. Risk of port or catheter fracture or failure or infection possibly requiring removal, general risk of anesthesia, deep vein thrombosis, pulmonary embolism, pneumonia, risk of cardiopulmonary event, remote risk of arterial injury or major venous tear but not limited to, consent obtained. I will review her CT scans and decide whether endoscopy here tomorrow if she takes a bowel prep versus other treatment plans. In the meantime will place a port for better access.
--- NOTE | 2020-10-02 11:11 | OP ---
SURGERY DATE/TIME: 09/30/2020 1030 PREOPERATIVE DIAGNOSIS: Severe anemia, history of pelvic mass, need for upper and lower endoscopy to rule out anemia source. POSTOPERATIVE DIAGNOSES: 1) Minimal gastritis. 2) Diverticulosis. 3) Fairly normal appearing colon and rectal mucosa. 4) Internal and external hemorrhoids. 5) Exophytic mass pushing in on the rectal area with normal appearing rectal mucosa. 6) Fair bowel prep. 7) ASA Class III. PROCEDURES: 1) EGD with cold biopsy antrum for Helicobacter pylori. 2) Cold biopsy distal esophagus to rule out normal variation gastroesophageal junction versus short segment of early distal gastroesophagitis. 3) Colonoscopy to cecum. 4) Cold biopsy mucosal overlying what seemed to be extra-luminal mass pushing in on the rectum with fairly normal appearing mucosa. SURGEON: Dr. Mihai Sanchez. ANESTHESIA: MAC. ESTIMATED BLOOD LOSS: Minimal. WITHDRAWAL TIME: Approximately eight minutes in the colon. PREP: Overall was fair. INDICATIONS: As noted above. Risks and benefits explained in detail but not limited to and consent obtained. DESCRIPTION OF PROCEDURE AND FINDINGS: The patient is taken to the endoscopy room. MAC anesthesia induced. After official time out and no disagreement with planned procedure, bite block positioned. Video gastroscope easily passed down the esophagus through the patent pylorus to the junction of second and third portion of the duodenum. Duodenum grossly unremarkable. Back in the stomach, she did have some patchy areas of mild erythema in the antrum. Cold biopsy taken to evaluate for some gastritis for Helicobacter pylori. Good hemostasis noted. On retroflex, gastroesophageal junction snug against the scope. No signs of any visible hiatal hernia on endoscopic view. Gastroesophageal junction noted about 38 cm. There was maybe just slight fingerlette of some salmon-pink mucosa extending up the esophagus whether this was some early distal gastroesophagitis versus just normal variation of the gastroesophageal junction, cold biopsy taken. The remainder of the esophagus grossly unremarkable. There had been no signs of any obvious ulcers or obvious sources of anemia in the upper GI tract. The scope is withdrawn. Attention then turned to the rectal exam. She did have some internal and external hemorrhoids. There did appear to be a mass cervical area pushing in on the rectum. The rectal mucosa itself on endoscopic view appeared to be fairly unremarkable but definitely external pushing in on the rectum. The scope is carefully navigated up through the descending, transverse, ascending colon. With external pressure the scope passed the cecum. Appendiceal orifice and valve photo documented. Prep overall was fair. There was a little bit liquidy semisolid stool suctioned irrigated as clear as possible. The scope is slowly and carefully withdrawn over the next eight minutes. She did have some mild diverticulosis in the left colon. There were no signs of any large polyps, masses or obstructing lesions. The scope pulled back to the rectum. Cold biopsy taken of this fairly normal appearing mucosa where the mass appeared to be outside the rectum causing some compression inward on the rectum itself but the rectal mucosa itself was fairly unremarkable, some random cold biopsies were taken for completeness. The scope is withdrawn. The patient tolerated the procedure well. There does not appear to be a primary rectal arising mass or colorectal arising mass. It was felt this is likely gynecological in origin but she needs evaluation by urology for cystoscopy and if this is a malignancy she may need gynecologic oncology. She definitely needs to follow up with gynecology to get their opinion on this as well as cystoscopy. I recommend sending her either to [facility] to be evaluated by client service coordinator and urology first or consider given the size of this thing whether just send her to a tertiary center.
== END 2020-09-30 12:50 | disposition home or self-care (01) | DRG 392 ==
LOC: MED SURG 16:19 → OBSVTOIN 09-28 16:19
PROVIDERS: ADMIT Family Medicine; ATTEND Family Medicine
PROC: 0DB38ZX Excision of Lower Esophagus, Via Natural or Artificial Opening Endoscopic, Diagnostic (ICD-10-PCS; principal; 2020-09-30)
PROC: 0DBP8ZX Excision of Rectum, Via Natural or Artificial Opening Endoscopic, Diagnostic (ICD-10-PCS; 2020-09-30)
DX: R19.00 Intra-abdominal and pelvic swelling, mass and lump, unspecified site (principal); K92.1 Melena; N17.9 Acute kidney failure, unspecified; I12.9 Hypertensive chronic kidney disease with stage 1 through stage 4 chronic kidney disease, or unspecified chronic kidney disease; D50.8 Other iron deficiency anemias; N93.9 Abnormal uterine and vaginal bleeding, unspecified; K64.8 Other hemorrhoids; Z79.899 Other long term (current) drug therapy; E03.9 Hypothyroidism, unspecified; R31.9 Hematuria, unspecified; K29.70 Gastritis, unspecified, without bleeding; K57.30 Diverticulosis of large intestine without perforation or abscess without bleeding; K64.4 Residual hemorrhoidal skin tags; Z20.828 Contact with and (suspected) exposure to other viral communicable diseases; E78.5 Hyperlipidemia, unspecified
CPT/HCPCS: 0241U; 36415; 36430; 76770; 76856; 77001; 80053; 81001; 82274; 83880; 85025; 85027; 86850; 86900; 86901; 86922; 87086; 88305; C1788; G0378; J0690; J1642; J2250; J2370; J2704; J3010; P9016; A9270-GY; G0328